=== PATIENT | female | born 1990 | race Caucasian/White ===

== ENCOUNTER 2017-12-19 22:42 | Emergency (ER) | payer MEDICAID ==
[~2017-12-19] VITALS: Ht 160 cm; Wt 70.5 kg
[2017-12-19 22:48] VITALS: BP 114/76
[2017-12-19 23:56] LABS: CULTURE INDICATED? YES; HCG UR SG 1.031 (1.003-1.030); MICROSCOPIC INDICATED
== END 2017-12-20 01:11 | disposition home or self-care (01) ==
LOC: ED 12-20 01:05
DX: S62.312A Displaced fracture of base of third metacarpal bone, right hand, initial encounter for closed fracture (principal); N30.00 Acute cystitis without hematuria; W51.XXXA Accidental striking against or bumped into by another person, initial encounter; Y93.89 Activity, other specified; Y92.89 Other specified places as the place of occurrence of the external cause; Y99.8 Other external cause status
CPT/HCPCS: 29125; 81001; 81025; 87077; 87086; 87186; 99285

== ENCOUNTER 2020-04-17 11:40 | Emergency (ER) | payer MEDICAID ==
[~2020-04-17] VITALS: Ht 162.6 cm; Wt 71.9 kg
--- NOTE | 2020-04-17 12:07 | NUR ---
at bedside for exam.
[2020-04-17] MEDS ORDERED: PROPOFOL 10 MG/ML, 20ML ONE (12:42)
[2020-04-17] MEDS ORDERED: LORazepam 2 MG/ML, 1ML ONE (12:42)
[2020-04-17] MEDS ORDERED: PROPOFOL 10 MG/ML, 20ML IVPush ONE (13:00)
[2020-04-17] MEDS ORDERED: SODIUM CHLORIDE FLUSH 10ML SYR IVF ONE (13:00)
[2020-04-17] MEDS ORDERED: LORazepam 2 MG/ML, 1ML IVPush ONE (13:00)
--- NOTE | 2020-04-17 13:10 | NUR ---
Pt set up and ready for procedural sedation with I&D of left lateral thigh and awaiting MD. 2 RN's at bedside .
--- NOTE | 2020-04-17 13:18 | NUR ---
MD at bedside, timeout performed and start of procedure is now. MD giving any propofol IVP, see procedural sedation paperwork for further documentation.
[2020-04-17] MEDS ORDERED: DIPHENHYDRAMINE 50 MG/ML, 1ML ONE (13:19)
[2020-04-17] MEDS ORDERED: KETOROLAC 30 MG/1 ML ONE (13:37)
[2020-04-17] MEDS ORDERED: KETOROLAC 30 MG/1 ML IVPush ONE (14:00)
[2020-04-17] MEDS ORDERED: PROPOFOL 10 MG/ML, 20ML IV ONE (14:00)
--- NOTE | 2020-04-17 14:10 | NUR ---
Pt trying to call her boyfriend to come in to room for coal picker for d/c home. Pt mentation back to baseline scoring and VS back to baseline as well. Call christi in [facility] [place] at [facility] with total 1200mL given during and post procedure. See further details, including Q5min VS from pre-procedure to now on printed VS record attached to procedural sedation paperwork.
--- NOTE | 2020-04-17 14:30 | NUR ---
Pt remains at baseline from pre-sedation and awaiting boyfriend to arrive for order picker/assembler to home.
--- NOTE | 2020-04-17 14:50 | NUR ---
Boyfriend arrived at bedside. Dsg to L thigh changed to clean 4x4 gauze dsg over packing wick and taped down. Pt provided a few 4x4 gauze packs, medium gloves, and paper tape for wound care as she states she is unable to supply these due to financial issues upon leaving this dept. Wound care instructions given with stated understanding of these. IV d/c'd with noted total IVF of 1350 infused for her stay today. VS printed and attached to procedural sedation paperwork at this time.
[2020-04-17 14:54] VITALS: BP 105/71
== END 2020-04-17 14:58 | disposition home or self-care (01) ==
LOC: ED 14:30
DX: L02.416 Cutaneous abscess of left lower limb (principal); F11.10 Opioid abuse, uncomplicated; M79.652 Pain in left thigh; Z88.0 Allergy status to penicillin
CPT/HCPCS: 10060; 96374; 96375; 99152; 99285; J1885; J2060; J2704

== ENCOUNTER 2020-06-04 04:37 | Emergency (ER) | payer MEDICAID ==
[~2020-06-04] VITALS: Ht 160 cm; Wt 71.5 kg
--- NOTE | 2020-06-04 05:00 | NUR ---
patient ambulated to room. placed in gown. callbell in reach. will continue to monitor
[2020-06-04] MEDS ORDERED: SODIUM CHLORIDE FLUSH 10ML SYR IVF ONE (05:30)
[2020-06-04] MEDS ORDERED: LORazepam 2 MG/ML, 1ML IVPush ONE (05:30)
[2020-06-04] MEDS ORDERED: PROPOFOL 10 MG/ML, 20ML ONE (05:31)
[2020-06-04] MEDS ORDERED: LORazepam 2 MG/ML, 1ML ONE (05:32)
[2020-06-04 05:46] LABS: BASOPHILS % (AUTO) 1 % (0-1); EOSINOPHILS % (AUTO) 4 % (1-7); LYMPHOCYTES % (AUTO) 27 % (22-44); MEAN CORPUSCULAR HEMOGLOBIN 30.3 pg (27.0-34.8); MEAN CORPUSCULAR HGB CONC 33.5 g/dL (32.4-35.8); MEAN PLATELET VOLUME 8.4 fL (7.4-10.4); MONOCYTES % (AUTO) 10 % (2-9); NEUTROPHILS % (AUTO) 59 % (42-75); PLATELET COUNT 269 x10^3/uL (130-400); RED BLOOD COUNT 3.99 x10^6/uL (3.82-5.3); RED CELL DISTRIBUTION WIDTH 13.5 % (9.6-15.2)
[2020-06-04 05:47] LABS: MD NO
--- NOTE | 2020-06-04 05:56 | NUR ---
Radiology delay- Labs @ [id number]
--- NOTE | 2020-06-04 05:57 | NUR ---
Radiology delay- patient to restroom @ [id number]
--- NOTE | 2020-06-04 06:28 | NUR ---
patient back from XR
--- NOTE | 2020-06-04 06:30 | NUR ---
procedural sedation started
--- NOTE | 2020-06-04 06:40 | NUR ---
PROCEDURE ENDED. NOW IN RECOVERY
--- NOTE | 2020-06-04 06:52 | NUR ---
REPORT GIVEN TO ALISE MENDENHALL. PATIENT CONTINUES TO BE RESTING IN NAD AND RECOVERING FROM PROCEDURAL SEDATION. UNUSED PROPOFOL WITNESSED DISCARD WITH ALISE MENDENHALL AND RETURNED UNUSED VIAL WITH KEYONA MENDENHALL.
--- NOTE | 2020-06-04 06:56 | NUR ---
RECEIVED REPORT FROM MISSY. PT STILL SEDATED BUT AROUSES WITH VERBAL STIMULI. NAD/VSS & AIRWAY PROTECTED, HOB ELEVATED, NO NEEDS AT THIS TIME.
[2020-06-04] MEDS ORDERED: PROPOFOL 10 MG/ML, 20ML IVPush ONE (07:00)
[2020-06-04 07:10] VITALS: BP 99/66
--- NOTE | 2020-06-04 07:30 | NUR ---
Patient given discharge instructions and Rx, they have confirmed that they understand the instructions. Patient ambulatory with steady gait.
== END 2020-06-04 07:32 | disposition home or self-care (01) ==
LOC: ED 05:17
DX: L02.415 Cutaneous abscess of right lower limb (principal)
CPT/HCPCS: 10060; 36415; 73502; 85025; 96374; 99152; 99285; J2060; J2704